=== PATIENT | female | born 1980 | race Caucasian/White ===

== ENCOUNTER → 2017-12-30 | Outpatient (CLI) | payer BC ==
[~2017-12-30] MED LIST: DOXYCYCLINE 10100 MG PO; FISH OIL 1,001000 M2 PO
== END ==
LOC: M.ULTRA 10:21
DX: R22.0 Localized swelling, mass and lump, head (principal)

== ENCOUNTER 2018-03-23 07:59 | Emergency (ER) | payer BC ==
[~2018-03-23] VITALS: Ht 175.3 cm; Wt 108.9 kg
[2018-03-23 08:06] VITALS: BP 130/83
[2018-03-23] MEDS ORDERED: FISH OIL 1,001000 M2 PO (08:08)
[2018-03-23] MEDS ORDERED: DOXYCYCLINE 10100 MG PO (08:30)
== END 2018-03-23 08:42 | disposition home or self-care (01) ==
LOC: M.ERS 07:59
DX: L03.114 Cellulitis of left upper limb (principal)

== ENCOUNTER → 2019-06-08 | Outpatient (CLI) | payer BC | LOC: M.CT 10:50 | DX: E04.2 Nontoxic multinodular goiter (principal); E06.3 Autoimmune thyroiditis; E07.89 Other specified disorders of thyroid; R13.10 Dysphagia, unspecified ==